=== PATIENT | male | born 1935 | race Caucasian/White ===

== ENCOUNTER 2019-09-13 11:09 | Outpatient (CLI) | payer OTHER | END 2019-09-13 11:25 | disposition home or self-care (01) | LOC: SONOGRAMA 11:09 | DX: N40.1 Benign prostatic hyperplasia with lower urinary tract symptoms (principal); R35.0 Frequency of micturition ==

== ENCOUNTER 2020-06-20 10:17 | Outpatient (CLI) | payer OTHER | END 2020-06-20 10:24 | disposition home or self-care (01) | LOC: LAB 10:17 | PROVIDERS: ATTEND Urology | DX: N40.1 Benign prostatic hyperplasia with lower urinary tract symptoms (principal); M35.09 Sjogren syndrome with other organ involvement; R97.20 Elevated prostate specific antigen [PSA] ==

== ENCOUNTER 2020-06-20 10:59 | Outpatient (CLI) | payer OTHER | END 2020-06-20 11:10 | disposition home or self-care (01) | LOC: SONOGRAMA 10:59 → MAMO-SONO 13:55 | PROVIDERS: ATTEND Urology | DX: Q61.01 Congenital single renal cyst (principal); N40.1 Benign prostatic hyperplasia with lower urinary tract symptoms; R35.0 Frequency of micturition ==

== ENCOUNTER → 2021-02-14 08:27 | Outpatient (CLI) | payer OTHER | END | disposition home or self-care (01) | LOC: LAB 08:27 | PROVIDERS: ATTEND Internal Medicine Geriatric Medicine | DX: D50.8 Other iron deficiency anemias (principal); E03.8 Other specified hypothyroidism; E78.2 Mixed hyperlipidemia; I11.9 Hypertensive heart disease without heart failure; E56.8 Deficiency of other vitamins; N39.0 Urinary tract infection, site not specified; Z12.11 Encounter for screening for malignant neoplasm of colon; R19.5 Other fecal abnormalities; E55.9 Vitamin D deficiency, unspecified; E11.9 Type 2 diabetes mellitus without complications; R06.02 Shortness of breath ==

== ENCOUNTER 2021-03-13 10:57 | Outpatient (CLI) | payer OTHER | END 2021-03-13 11:12 | disposition home or self-care (01) | LOC: SONOGRAMA 10:57 | PROVIDERS: ATTEND Urology | DX: Q61.01 Congenital single renal cyst (principal); N40.1 Benign prostatic hyperplasia with lower urinary tract symptoms; R35.0 Frequency of micturition; R31.1 Benign essential microscopic hematuria ==

== ENCOUNTER → 2021-03-13 | Outpatient (CLI) | payer OTHER | END | disposition home or self-care (01) | LOC: LAB 10:03 | PROVIDERS: ATTEND Urology | DX: N30.00 Acute cystitis without hematuria (principal) ==

== ENCOUNTER 2021-08-16 09:32 | Outpatient (CLI) | payer OTHER | END 2021-08-16 09:45 | disposition home or self-care (01) | LOC: LAB 09:32 | PROVIDERS: ATTEND Pulmonary Function Technologist | DX: J45.998 Other asthma (principal); J45.51 Severe persistent asthma with (acute) exacerbation; J30.1 Allergic rhinitis due to pollen ==

== ENCOUNTER 2022-03-27 09:32 | Outpatient (CLI) | payer OTHER | END 2022-03-27 09:46 | disposition home or self-care (01) | LOC: LAB 09:32 | PROVIDERS: ATTEND Urology | DX: N40.1 Benign prostatic hyperplasia with lower urinary tract symptoms (principal); R35.0 Frequency of micturition; R97.20 Elevated prostate specific antigen [PSA]; R31.1 Benign essential microscopic hematuria; M79.641 Pain in right hand; M79.642 Pain in left hand ==

== ENCOUNTER 2022-03-27 10:09 | Outpatient (CLI) | payer OTHER | END 2022-03-27 10:19 | disposition home or self-care (01) | LOC: SONOGRAMA 10:09 | PROVIDERS: ATTEND Urology | DX: N40.1 Benign prostatic hyperplasia with lower urinary tract symptoms (principal); R35.0 Frequency of micturition; R31.1 Benign essential microscopic hematuria ==

== ENCOUNTER 2022-08-14 10:42 | Outpatient (CLI) | payer OTHER | END 2022-08-14 10:47 | disposition home or self-care (01) | LOC: MRI 10:42 | PROVIDERS: ATTEND Specialist | DX: M48.061 Spinal stenosis, lumbar region without neurogenic claudication (principal) | CPT/HCPCS: 72148 ==